=== PATIENT | female | born 1975 | race Caucasian/White ===

== ENCOUNTER 2019-02-05 07:10 | Day surgery (SDC) | payer OTHER ==
[~2019-02-05] VITALS: Ht 175 cm; Wt 67.4 kg
[~2019-02-05 07:10] MED LIST: DIAZ5 PO; EPIPEN0.3 MG/0.3 IM; MELO7.5 PO
--- NOTE | 2019-02-05 08:08 | NUR ---
Ambulatory in Day Surgery History, Chart, Medications and Allergies reviewed before start of procedure.Patient confirms NPO status and agrees with scheduled surgery. Patient reports completing Chlorhexadine shower X2 prior to admission to hospital.
--- NOTE | 2019-02-05 10:21 | NUR ---
ASSESSED PATIENT PAD IN M[place]ON[place] PANTIES. SMALL AMOUNT OF SANGUNIOUS DRAINANGE NOTED. PT HAD SMALL AMOUNT OF SANG DRAINAGE IN VAGINA ALSO. CLEANED AREA TO GET A BETTER VIEW. REPORTED FINDINGS TO DR HARDY. PATIENT STATED SHE SHOULDN'T START HER PERIOD FOR ANOTHER WEEK. RECEIVED NO NEW ORDERS FROM DR HARDY. ENCOURAGED PT TO CALL DR HARDY FOR ANY FURTHER CONCERNS AND WHAT TO MONITOR SELF FOR. PROVIDED NEW LEONARD PAD. Patient up to Ambulate independently. Gait steady. Discharge instructions reviewed with patient. Patient verbalizes understanding. Copy given to patient to take home. Patient States Post-Procedure ride home has been arranged. ALL BELONGINGS RETUNED TO PATIENT. Discharged via wheelchair to private car for ride home.
== END 2019-02-05 23:09 | disposition home or self-care (01) ==
LOC: ORSCMMR 07:10 → ORD 08:45 → ORSCMMR 23:09
PROVIDERS: Surgery
PROC: 06BY0ZC Excision of Hemorrhoidal Plexus, Open Approach (ICD-10-PCS; principal; 2019-02-05 08:45)
PROC: 0H88XZZ Division of Buttock Skin, External Approach (ICD-10-PCS; principal; 2019-02-05 08:45)
DX: K60.5 Anorectal fistula (principal); K64.4 Residual hemorrhoidal skin tags; F32.9 Major depressive disorder, single episode, unspecified; Z79.899 Other long term (current) drug therapy
CPT/HCPCS: 88305; J1100; J2250; J2405; J2704; J3010; J7120

== ENCOUNTER → 2024-02-05 | Outpatient (CLI) | payer OTHER | END | disposition home or self-care (01) | LOC: LAB 13:05 → LAB SHORT 13:05 | DX: N92.1 Excessive and frequent menstruation with irregular cycle (principal) | CPT/HCPCS: 88305 ==